=== PATIENT | male | born 1990 | race Caucasian/White ===

== ENCOUNTER 2018-03-23 20:24 | Emergency (ER) | payer MEDICAID, OTHER ==
[~2018-03-23] VITALS: Ht 584.7 cm; Wt 55.0 kg
[~2018-03-23 20:24] MED LIST: CLOT15CR5 TOP; HYDR25SU32 RC; HYDR30CR79 TOP; IBUP-1985 PO
[2018-03-23] MEDS ORDERED: ketorolac trometh inj. 60 MG/2 ML VIAL IM ONE (20:45)
[2018-03-23] MEDS ORDERED: CYCL-1 PO (21:01)
[2018-03-23] MEDS ORDERED: DICL50TA8 PO (21:01)
[2018-03-23 21:39] VITALS: BP 115/72
== END 2018-03-23 21:42 | disposition home or self-care (01) ==
LOC: ER 20:24
DX: M54.5 Low back pain (principal); Z79.899 Other long term (current) drug therapy
CPT/HCPCS: 96372; 99283; J1885

== ENCOUNTER 2019-05-27 17:20 | Emergency (ER) | payer OTHER ==
[~2019-05-27] VITALS: Ht 170.2 cm; Wt 56.4 kg
[~2019-05-27 17:20] MED LIST changes: +CYCL-1 PO; +DICL50TA8 PO
[2019-05-27 17:33] VITALS: BP 99/64
== END 2019-05-27 18:41 | disposition home or self-care (01) ==
LOC: ER 17:21
DX: J02.9 Acute pharyngitis, unspecified (principal); F17.200 Nicotine dependence, unspecified, uncomplicated; F10.99 Alcohol use, unspecified with unspecified alcohol-induced disorder; Z79.899 Other long term (current) drug therapy; Y90.9 Presence of alcohol in blood, level not specified
CPT/HCPCS: 87081; 87880; 99283

== ENCOUNTER 2023-10-24 16:29 | Emergency (ER) | payer MEDICAID ==
[~2023-10-24] VITALS: Ht 172.7 cm; Wt 68.2 kg
[~2023-10-24 16:29] MED LIST changes: +CLOT15CR35 TOP; -CLOT15CR5 TOP
[2023-10-24 16:50] VITALS: BP 128/79; PULSE 81; RESP 18; TEMP 97.8; O2SAT 99
[2023-10-24 16:52] LABS: BASOPHILS % (AUTO) 0.4 % (0-1); EOSINOPHILS # (AUTO) 0.1 X10'3 (0-0.9); EOSINOPHILS % (AUTO) 1.1 % (0-6); HEMATOCRIT 42.9 % (42.0-52.0); HEMOGLOBIN 14.9 g/dl (14.0-17.9); LYMPHOCYTES # (AUTO) 2.7 X10'3 (1.1-4.8); LYMPHOCYTES % (AUTO) 37.4 % (21-51); MEAN CORPUSCULAR HEMOGLOBIN 30.6 PG (27.0-31.0); MEAN CORPUSCULAR HGB CONC 34.8 g/dL (33.0-36.5); MEAN CORPUSCULAR VOLUME 87.8 FL (78-98); MEAN PLATELET VOLUME 10.1 FL (7.4-10.4); MONOCYTES # (AUTO) 0.6 X10'3 (0-0.9); MONOCYTES % (AUTO) 8.9 % (2-12); NEUTROPHILS # (AUTO) 3.7 X10'3 (1.8-7.7); NEUTROPHILS % (AUTO) 52.2 % (42-75); PLATELET COUNT 171 X10'3 (140-440); RED BLOOD COUNT 4.88 X10'6 (4.70-6.10); RED CELL DISTRIBUTION WIDTH 12.5 % (11.5-14.5); WHITE BLOOD COUNT 7.1 X10'3 (4.5-11.0)
[2023-10-24 17:24] LABS: ALANINE AMINOTRANSFERASE 44 U/L (12-78); ALBUMIN 3.9 G/DL (3.4-5.0); ALKALINE PHOSPHATASE 127 IU/L (46-116); ANION GAP 8 (8-16); BILIRUBIN,TOTAL 0.3 MG/DL (0.1-1.0); BLOOD UREA NITROGEN 17 MG/DL (7-18); BUN/CREATININE RATIO 16.8 (10.0-20.0); CALCIUM 8.4 MG/DL (8.5-10.1); CHLORIDE 106 MMOL/L (99-107); CREATININE 1.01 MG/DL (0.60-1.10); PRO BRAIN NATRIURETIC PEPTIDE 38 PG/ML (0-125); SODIUM 142 MMOL/L (135-145); TOTAL CARBON DIOXIDE 28.4 MMOL/L (24-32); eCRCL 100 ML/MIN; eGFR 85 ML/MIN
[2023-10-24 18:28] LABS: GLUCOSE 84 MG/DL (70-104)
[2023-10-24 18:29] LABS: TOTAL PROTEIN 7.7 G/DL (6.4-8.2)
[2023-10-24 18:41] LABS: ASPARTATE AMINO TRANSFERASE 16 U/L (10-37)
== END 2023-10-24 21:48 | disposition left against medical advice (07) ==
LOC: ER 16:29
DX: R07.89 Other chest pain (principal); Z53.21 Procedure and treatment not carried out due to patient leaving prior to being seen by health care provider
CPT/HCPCS: 36415; 71045; 80053; 83880; 84484; 85025; 93005; 99281